=== PATIENT | female | born 1990 | race Hispanic/Latino ===

== ENCOUNTER 2022-09-07 09:09 | Emergency (ER) | payer OTHER, SELFPAY ==
[2022-09-07 09:21] VITALS: BP 125/66; PULSE 82; RESP 18; TEMP 36.7; O2SAT 100
--- NOTE | 2022-09-07 09:35 | ED.EAR ---
HPI - Ear Problem General Chief complaint: Ear Stated complaint: Bilateral Ear Pain Time Seen by Provider: 09/07/22 09:22 Source: patient Mode of arrival: ambulatory Limitations: no limitations History of Present Illness HPI Narrative: 32 year old female presents today with complaints of bilateral ear pain. Patient states that it started in the right ear on the and now has moved to the left ear. Patient denies any fevers, cough, chills, sick contacts. Patient states she does have a history of multiple ear infections. Has seen a specialist in the past last time was about 4 years ago. Patient states the specialist was concerned about possible hearing loss due to multiple infections. Patient has not seen a specialist since being here. Patient moved here about a year ago. MD Complaint: ear pain Location: bilateral Duration: constant Severity: moderate Relieving factors: nothing Exacerbating factors: nothing Context: Denies recent illness or recent swimming Discharge from ear: Reports no Related Data Allergies Allergy/AdvReac Type Severity Reaction Status Date / Time No Known Allergies Allergy Verified 09/07/22 09:31 Review of Systems Review of Systems: CONSTITUTIONAL: Denies fever, chills, or sweats. EYES: Denies visual changes, redness, or discharge. ENT: Denies rhinorrhea, congestion, sore throat, or otalgia. CARDIOVASCULAR: Denies chest pain, palpitations, or edema. RESPIRATORY: Denies cough or dyspnea. SKIN: Denies rash or itching. Exam Narrative: GENERAL: Well-appearing, well-nourished, and in no acute distress. HEAD: Normocephalic, atraumatic. EYES: PERRLA and EOMI. ENT: Nares clear, no rhinorrhea or epistaxis. Mucous membranes moist. Oropharynx without tonsillar hypertrophy exudate or other lesions. Right tympanic membrane cloudy. left tympanic membrane bulging with erythema. no draiange noted bilaterally and ear canal without erythema or exudate. NECK: Supple. No adenopathy or masses. CHEST: Clear to auscultation. No respiratory distress. No wheezes rales or rhonchi HEART: Regular rate and rhythm. No murmur heard. Normal peripheral pulses. Course Vital Signs Vital signs: Vital Signs Temperature 98.0 F 09/07/22 09:21 Pulse Rate 82 09/07/22 09:21 Respiratory Rate 18 09/07/22 09:21 Blood Pressure 125/66 06/03/23 09:21 Pulse Oximetry 100 09/07/22 09:21 Oxygen Delivery Room Air 09/07/22 09:21 Temperature 98.0 F 09/07/22 09:21 Pulse Rate 82 09/07/22 09:21 Respiratory Rate 18 09/07/22 09:21 Blood Pressure 125/66 09/07/22 09:21 Pulse Oximetry 100 09/07/22 09:21 Oxygen Delivery Room Air 09/07/22 09:21 Medical Decision Making MDM Narrative Medical decision making narrative: 32 year old patient arrives with complaints of bilateral ear pain. Differentials as noted. Left ear with erythema and bulging. Will treat with oral abx. Referral to ENT due to hx of ear issues in the past. Differential Diagnosis Differential Diagnosis: URI, otitis externa, Otitis media, bilateral otalgia Vital Signs Vital Signs: Vital Signs Temperature 98.0 F 09/07/22 09:21 Pulse Rate 82 09/07/22 09:21 Respiratory Rate 18 09/07/22 09:21 Blood Pressure 125/66 09/07/22 09:21 Pulse Oximetry 100 09/07/22 09:21 Oxygen Delivery Room Air 09/07/22 09:21 Temperature 98.0 F 09/07/22 09:21 Pulse Rate 82 09/07/22 09:21 Respiratory Rate 18 09/07/22 09:21 Blood Pressure 125/66 09/07/22 09:21 Pulse Oximetry 100 09/07/22 09:21 Oxygen Delivery Room Air 09/07/22 09:21 Discharge Plan Discharge Clinical Impression: Otitis media Qualifiers: Otitis media type: unspecified Chronicity: acute Qualified Code(s): H66.90 - Otitis media, unspecified, unspecified ear Instructions: Ear Infection (ED) Additional Instructions: Tylenol or ibuprofen as needed for pain per package directions. Make sure to follow up with ENT. Take
[2022-09-07 09:59] VITALS: BP 126/66; PULSE 83; RESP 19; O2SAT 100
== END 2022-09-07 09:58 | disposition home or self-care (01) ==
LOC: ANHED 09:54
PROVIDERS: Emergency Provider Nurse Practitioner Family
DX: H66.93 Otitis media, unspecified, bilateral (principal)
CPT/HCPCS: 99283